=== PATIENT | male | born 1945 | race Caucasian/White ===

== ENCOUNTER 2019-06-23 12:01 | Observation (INO) ==
[2019-06-23 12:39] LABS: Basophils % 0.5 %; Eosinophils # 0.2 K/mcL (0.0-0.6); Eosinophils % 3.1 %; Hematocrit 49.1 % (37.5-50.1); Hemoglobin 15.7 g/dL (12.9-16.9); Immature Granulocytes % 0.3 % (0-4); Lymphocytes # 1.3 K/mcL (0.6-4.6); Lymphocytes % 16.9 %; Mean Corpuscular Hemoglobin 33.5 pg (28.0-33.3); Mean Corpuscular Volume 104.9 fL (83.0-100.0); Mean Platelet Volume 11.5 fL (9.4-12.4); Monocytes # 0.9 K/mcL (0.0-1.3); Monocytes % 11.7 %; Neutrophils # 5.3 K/mcL (1.6-8.9); Platelet Count 131 K/mcL (140-400); Red Blood Count 4.68 M/mcL (4.19-5.50); Red Cell Distribution Width 13.5 % (11.5-14.5); Segmented Neutrophils % 67.5 %; White Blood Count 7.9 K/mcL (4.3-11.1)
[2019-06-23 13:00] LABS: BUN/Creatinine Ratio 17 (6-26); Blood Urea Nitrogen 10 mg/dL (8-23); Calcium 9.6 mg/dL (8.6-10.3); Carbon Dioxide 36 mEq/L (23-29); Chloride 95 mEq/L (98-107); Glucose 98 mg/dL (70-105); Osmolality,Calculated 293 (280-300); Potassium 3.9 mEq/L (3.5-5.1); Sodium 142 mEq/L (136-145); Troponin I < 0.03 ng/mL (< 0.04); eGFR For African Americans > 60 (> 60); eGFR For Non-African Americans > 60 (> 60)
[2019-06-23 13:02] LABS: Albumin 4.3 g/dL (3.5-5.7); Albumin/Globulin Ratio 1.3 (1.1-2.2); Bilirubin,Direct 0.2 mg/dL (0.0-0.2); Bilirubin,Indirect 0.5 mg/dL (0.0-1.0); Bilirubin,Total 0.7 mg/dL (0.3-1.0); Globulin 3.2 g/dL (2.4-3.5); Total Protein 7.5 g/dL (6.4-8.9)
[2019-06-23] MEDS ORDERED: Ipratropium/Albuterol Neb 3 ML IH ONE (15:17)
[2019-06-23] MEDS ORDERED: cefTRIAXone 1,000 MG in 0.9 % Sodium Chloride Mini Bag 100 ML IVPB ONE (15:17)
[2019-06-23] MEDS ORDERED: Azithromycin 500 MG in D5% in Water 250 ML IVPB ONE (15:17)
[2019-06-23] MEDS ORDERED: methylPREDNISolone 125 MG/2 ML VIAL IVP ONE (15:17)
[2019-06-23] MEDS ORDERED: Isovue-370 500 ML BOTTLE IVP ONE (16:22)
[2019-06-23] MEDS ORDERED: 0.9 % Sodium Chloride 1,000 ML IVC SCH (17:15)
[2019-06-23] MEDS ORDERED: Ondansetron 4 MG/2 ML VIAL IVP PRN (17:15)
[2019-06-23] MEDS ORDERED: *HR* LORazepam 2 MG/ML VIAL IVP PRN ×3 (17:18)
[2019-06-23] MEDS: *HR* Heparin 5,000 UNIT/ML VIAL SQ SCH (18:41)
[2019-06-23 18:53] LABS: VBG HCO3 37 mEq/L (21-27); VBG PCO2 72 mmHg (41-51); VBG PH 7.32 pH Units (7.32-7.42); VBG PO2 45 mmHg (25-50)
[2019-06-23] MEDS: Albuterol 2.5 MG/3 ML NEBULIZER IH SCH ×2 (19:37→23:40)
[2019-06-23] MEDS ORDERED: Melatonin 3 MG TABLET PO PRN (19:40)
[2019-06-23] MEDS: Nicotine 21 MG PATCH.TD24 TD SCH (20:04)
[2019-06-24 02:41] LABS: Immature Granulocytes % 0.3 % (0-4)
[2019-06-24 02:42] LABS: Hematocrit 43.1 % (37.5-50.1); Hemoglobin 13.9 g/dL (12.9-16.9); Immature Platelets 11.2 % (1.1-6.1); Lymphocytes # 0.4 K/mcL (0.6-4.6); Lymphocytes % 9.8 %; Mean Corpuscular HGB Conc 32.3 g/dL (31.6-35.5); Mean Corpuscular Hemoglobin 33.3 pg (28.0-33.3); Mean Corpuscular Volume 103.4 fL (83.0-100.0); Mean Platelet Volume 11.7 fL (9.4-12.4); Monocytes # 0.2 K/mcL (0.0-1.3); Monocytes % 4.1 %; Red Blood Count 4.17 M/mcL (4.19-5.50); Segmented Neutrophils % 85.8 %; White Blood Count 3.9 K/mcL (4.3-11.1)
[2019-06-24 02:51] LABS: BUN/Creatinine Ratio 19 (6-26); Blood Urea Nitrogen 10 mg/dL (8-23); Carbon Dioxide 36 mEq/L (23-29); Chloride 97 mEq/L (98-107); Glucose 166 mg/dL (70-105); Osmolality,Calculated 289 (280-300); Potassium 4.2 mEq/L (3.5-5.1); Sodium 138 mEq/L (136-145); eGFR For African Americans > 60 (> 60); eGFR For Non-African Americans > 60 (> 60)
[2019-06-24 02:55] LABS: Neutrophils # 3.4 K/mcL (1.6-8.9); Platelet Count 97 K/mcL (140-400)
[2019-06-24 03:27] LABS: Platelet Estimate Decreased (Normal)
[2019-06-24] MEDS: Albuterol 2.5 MG/3 ML NEBULIZER IH SCH ×3 (03:47→11:26)
[2019-06-24] MEDS: *HR* Heparin 5,000 UNIT/ML VIAL SQ SCH (05:03)
[2019-06-24] MEDS: MethylPREDNISolone 40 MG/ML VIAL IVP SCH ×2 (08:54→10:17)
[2019-06-24] MEDS: Nicotine 21 MG PATCH.TD24 TD SCH (08:54)
[2019-06-24] MEDS ORDERED: Azithromycin 500 MG in 0.9 % Sodium Chloride 250 ML IVPB SCH (09:00)
[2019-06-24] MEDS ORDERED: Thiamine (B-1) 100 MG TABLET PO SCH (09:00)
[2019-06-24] MEDS ORDERED: Folic Acid 1 MG TABLET PO SCH (09:00)
[2019-06-24 11:32] VITALS: BP 152/78
== END 2019-06-24 12:10 | disposition home or self-care (01) ==
LOC: EMEROOARM 12:01 → 3BNU 12:01 → SUATTDRO 16:53 → 3BNU 17:29
PROVIDERS: ADMIT Internal Medicine; ATTEND Internal Medicine

== ENCOUNTER 2019-07-26 13:02 | Inpatient (IN) ==
[2019-07-26] MEDS ORDERED: methylPREDNISolone 125 MG/2 ML VIAL IVP ONE (13:23)
[2019-07-26] MEDS ORDERED: Ipratropium/Albuterol Neb 3 ML IH ONE (13:23)
[2019-07-26] MEDS ORDERED: cefTRIAXone 2,000 MG in Water for inj. (sterile) 20 ML IVP ONE (13:24)
[2019-07-26] MEDS ORDERED: Azithromycin 500 MG in 0.9 % Sodium Chloride 250 ML IVPB ONE (13:24)
[2019-07-26] MEDS ORDERED: 0.9 % Sodium Chloride 1,000 ML IVC ONE ×2 (13:25→13:26)
[2019-07-26] MEDS ORDERED: Aspirin 81 MG TAB.CHEW PO STA (13:34)
[2019-07-26 14:37] LABS: Basophils # 0.1 K/mcL (0.0-0.2); Basophils % 0.3 %; Eosinophils # 0.1 K/mcL (0.0-0.6); Eosinophils % 0.6 %; Hematocrit 43.2 % (37.5-50.1); Hemoglobin 13.8 g/dL (12.9-16.9); Immature Granulocytes % 0.5 % (0-4); Lymphocytes # 2.1 K/mcL (0.6-4.6); Lymphocytes % 14.3 %; Mean Corpuscular HGB Conc 31.9 g/dL (31.6-35.5); Mean Corpuscular Hemoglobin 33.4 pg (28.0-33.3); Mean Corpuscular Volume 104.6 fL (83.0-100.0); Mean Platelet Volume 10.8 fL (9.4-12.4); Monocytes # 2.2 K/mcL (0.0-1.3); Monocytes % 14.8 %; Neutrophils # 10.3 K/mcL (1.6-8.9); Platelet Count 210 K/mcL (140-400); Red Blood Count 4.13 M/mcL (4.19-5.50); Red Cell Distribution Width 12.8 % (11.5-14.5); Segmented Neutrophils % 69.5 %; White Blood Count 14.8 K/mcL (4.3-11.1)
[2019-07-26] MEDS ORDERED: Isovue-370 500 ML BOTTLE IVP ONE (14:47)
[2019-07-26 14:54] LABS: BUN/Creatinine Ratio 15 (6-26); Blood Urea Nitrogen 7 mg/dL (8-23); Calcium 9.3 mg/dL (8.6-10.3); Carbon Dioxide 34 mEq/L (23-29); Chloride 93 mEq/L (98-107); Glucose 95 mg/dL (70-105); Osmolality,Calculated 286 (280-300); Potassium 3.7 mEq/L (3.5-5.1); Sodium 139 mEq/L (136-145); eGFR For African Americans > 60 (> 60); eGFR For Non-African Americans > 60 (> 60)
[2019-07-26] MEDS ORDERED: Naloxone 0.4 MG/ML INJ IVP PRN (16:46)
[2019-07-26] MEDS ORDERED: Ketoconazole 2% CRM 15 GM TUBE TP PRN (16:48)
[2019-07-26] MEDS ORDERED: *HR* LORazepam 0.5 MG TABLET PO PRN (16:48)
[2019-07-26] MEDS: *HR* Heparin 5,000 UNIT/ML VIAL SQ SCH (18:47)
[2019-07-26] MEDS: Budesonide/Formoterol 160/4.5 1 PUFF INH IH SCH (19:46)
[2019-07-26] MEDS: Ipratropium Neb 0.5 MG NEBULIZER IH SCH ×2 (19:46→23:43)
[2019-07-26] MEDS ORDERED: Nicotine 21 MG PATCH.TD24 TD SCH (20:45)
[2019-07-26] MEDS: risperiDONE 0.25 MG TABLET PO SCH (21:31)
[2019-07-26] MEDS: Levalbuterol Neb 1.25 MG/3 ML IH SCH (23:43)
[2019-07-27 01:55] LABS: Basophils % 0.2 %; Hematocrit 40.9 % (37.5-50.1); Hemoglobin 13.2 g/dL (12.9-16.9); Immature Granulocytes % 0.4 % (0-4); Lymphocytes # 0.3 K/mcL (0.6-4.6); Lymphocytes % 2.7 %; Mean Corpuscular HGB Conc 32.3 g/dL (31.6-35.5); Mean Corpuscular Hemoglobin 32.6 pg (28.0-33.3); Mean Platelet Volume 10.8 fL (9.4-12.4); Monocytes # 0.5 K/mcL (0.0-1.3); Monocytes % 4.2 %; Neutrophils # 11.5 K/mcL (1.6-8.9); Platelet Count 214 K/mcL (140-400); Red Blood Count 4.05 M/mcL (4.19-5.50); Red Cell Distribution Width 12.6 % (11.5-14.5); Segmented Neutrophils % 92.5 %; White Blood Count 12.4 K/mcL (4.3-11.1)
[2019-07-27 02:57] LABS: Adenovirus Not Detected (Not Detect); Bordetella Pertussis Not Detected (Not Detect); Chlamydophila pneumoniae Not Detected (Not Detect); Coronavirus 229E Not Detected (Not Detect); Coronavirus HKU1 Not Detected (Not Detect); Coronavirus NL63 Not Detected (Not Detect); Coronavirus OC43 Not Detected (Not Detect); Human Metapneumovirus Not Detected (Not Detect); Human Rhinovirus/Enterovirus Not Detected (Not Detect); Influenza A Subtype 2009 H1 Not Detected (Not Detect); Influenza B Not Detected (Not Detect); Mycoplasma pneumoniae Not Detected (Not Detect); Parainfluenza Virus 1 Not Detected (Not Detect); Parainfluenza Virus 2 Not Detected (Not Detect); Parainfluenza Virus 3 Not Detected (Not Detect); Parainfluenza Virus 4 Not Detected (Not Detect); Respiratory Syncytial Virus Not Detected (Not Detect)
[2019-07-27] MEDS: Levalbuterol Neb 1.25 MG/3 ML IH SCH ×4 (03:33→19:40)
[2019-07-27] MEDS: Ipratropium Neb 0.5 MG NEBULIZER IH SCH ×6 (03:33→23:40)
[2019-07-27 04:24] LABS: BUN/Creatinine Ratio 15 (6-26); Blood Urea Nitrogen 7 mg/dL (8-23); Calcium 9.2 mg/dL (8.6-10.3); Carbon Dioxide 34 mEq/L (23-29); Chloride 96 mEq/L (98-107); Glucose 203 mg/dL (70-105); Osmolality,Calculated 288 (280-300); Potassium 3.7 mEq/L (3.5-5.1); Sodium 137 mEq/L (136-145); eGFR For African Americans > 60 (> 60); eGFR For Non-African Americans > 60 (> 60)
[2019-07-27] MEDS: *HR* Heparin 5,000 UNIT/ML VIAL SQ SCH ×2 (05:10→17:53)
[2019-07-27] MEDS: Budesonide/Formoterol 160/4.5 1 PUFF INH IH SCH ×2 (07:18→19:41)
[2019-07-27] MEDS: predniSONE 20 MG TABLET PO SCH (07:48)
[2019-07-27] MEDS: risperiDONE 0.25 MG TABLET PO SCH ×2 (07:49→20:56)
[2019-07-27] MEDS ORDERED: Azithromycin 250 MG TABLET PO SCH (09:00)
[2019-07-27] MEDS ORDERED: cefTRIAXone 2,000 MG in Water for inj. (sterile) 20 ML IVP SCH (13:00)
[2019-07-27 13:25] LABS: INR 1.1; Prothrombin Time 12.8 Seconds (9.4-12.1)
[2019-07-27 17:32] LABS: RBC,Pleural Fluid 0.003 M/mcL
[2019-07-27] MEDS ORDERED: Nicotine 21 MG PATCH.TD24 TD SCH (18:00)
[2019-07-27 20:48] LABS: Appearance of Pleural Fl Cloudy (Clear); Basophils,Pleural Fluid 0 %; Eosinophils,Pleural Fluid 0 %; Monocytes,Pleural Fluid 0 %
[2019-07-28] MEDS: Levalbuterol Neb 1.25 MG/3 ML IH SCH ×2 (03:23→11:13)
[2019-07-28] MEDS: Ipratropium Neb 0.5 MG NEBULIZER IH SCH ×3 (03:23→11:13)
[2019-07-28] MEDS: *HR* Heparin 5,000 UNIT/ML VIAL SQ SCH (05:38)
[2019-07-28 06:31] VITALS: BP 146/85
[2019-07-28] MEDS: Budesonide/Formoterol 160/4.5 1 PUFF INH IH SCH (07:19)
[2019-07-28] MEDS: risperiDONE 0.25 MG TABLET PO SCH (09:53)
[2019-07-28] MEDS: predniSONE 20 MG TABLET PO SCH (09:54)
[2019-07-30 05:33] LABS: Fluid Source for Albumin PLEURAL
== END 2019-07-28 13:36 | disposition home or self-care (01) | DRG 871 ==
LOC: EMEROOARM 13:02 → 2NENU 13:02 → SUATTDRO 16:47 → 2NENU 17:19 → SUATTDRO 07-27 12:52
PROVIDERS: ADMIT Internal Medicine; ATTEND Family Medicine